=== PATIENT | female | born 1985 | race African-American/Black ===

== ENCOUNTER 2017-09-19 16:42 | Emergency (ER) | payer SELFPAY ==
[2017-09-19 16:59] VITALS: BP 125/85; PULSE 81; TEMP 98.3; BMI 41.2
--- NOTE | 2017-09-19 17:01 | PDOC ---
Rapid Medical Evaluation Time Seen by Provider: 09/19/17 16:56 Medical Evaluation: 09/19/17 16:56 Pt c/o: chest tightness, unable to take a deep breath, worsened during winter months and when outside, used albuterol without improvement, hx of freq bronchitis, denies left sided cp, wheezing, calf pain, smoking, PERC - Pt on brief exam: LCTA, VSS, Pt ordered for: none P to proceed to the ED:
[2017-09-19] MEDS ORDERED: predniSONE 20 MG TABLET (UD) PO ONE (18:21)
--- NOTE | 2017-09-19 18:22 | PDOC ---
History of Present Illness - General Chief Complaint: Shortness of Breath Stated Complaint: COLD SYMPTOMS Time Seen by Provider: 09/19/17 16:56 History Source: Patient Exam Limitations: No Limitations - History of Present Illness Initial Comments: CHIEF COMPLAINT: 32 y/o afebrile female with no significant PMH c/o SOB, cough and chest tightness "since the weather got cold". HISTORY OF PRESENT ILLNESS: The patient states that since the weather got cold she has had trouble taking air in. She also has a dry cough and chest tightness. She was seen at another hospital and by her PCP 1 month ago for the same symptoms, was worked up and sent with an rx for a special inhaler but her insurance wouldn't cover it and she couldn't afford it. She denies f/c, earache , sore throat, jaw pain, left arm pain, chest pressure, n/v/d, abd pain and all other symptoms. Past History - Past Medical History Allergies/Adverse Reactions: Allergies Allergy/AdvReac Type Severity Reaction Status Date / Time No Known Allergies Allergy Verified 09/19/17 16:59 Home Medications: Ambulatory Orders Albuterol 0.083% Nebulizer Serena [Ventolin 0.083% Nebulizer Soln -] 1 neb NEB Q4H #50 vial 09/19/17 Nebulizer and Compressor [[place] Choice Nebulizer] 1 each Q4H #1 each Prednisone [Deltasone] 60 mg PO DAILY #12 tablet 09/19/17 COPD: No (BRONCHITIS) Other medical history: DENIES MEDICAL HX - Suicide/Smoking/Psychosocial Hx Smoking History: Never smoked Hx Alcohol Use: No Drug/Substance Use Hx: No Review of Systems - Review of Systems Able to Perform ROS?: Yes Constitutional: No: Chills, Fever HEENTM: Yes: Nose Congestion. No: Ear Pain, Nose Pain, Throat Pain, Difficulty Swallowing Respiratory: Yes: Cough, Shortness of Breath (worse in the cold weather). No: Wheezing, Productive cough, Hemoptysis Cardiac (ROS): Yes: Chest Tightness (in the cold weather) ABD/GI: No: Diarrhea, Nausea, Vomiting *Physical Exam - Vital Signs Last Vital Signs Temp Pulse Resp BP Pulse Ox 98.3 F 81 16 125/85 95 09/19/17 16:55 09/19/17 16:55 09/19/17 16:55 09/19/17 16:55 09/19/17 16:55 - Physical Exam Comments: Well appearing female in NAD or obvious discomfort, speaking in full sentences. General Appearance: Yes: Nourished, Appropriately Dressed, Obese Respiratory/Chest: positive: Lungs Clear, Normal Breath Sounds. negative: Respiratory Distress, Rales, Rhonchi, Wheezing Cardiovascular: positive: Regular Rhythm, Regular Rate Medical Decision Making - Medical Decision Making A/P: 32 y/o with suspected cough variant asthma that is exacerbated by the cold weather. Plan is as follows: 1. Duoneb x 2 2. PO prednisone. The patient states she feels better after 2 duonebs and prednisone. Her O2 sat is now 98%. Will discharge to home with rx for nebulizer machine, albuterol and 4 day course of prednisone. Suggested she f/u with her PCP within 2 weeks and return to the ER with any worsening or concerning symptoms. The patient verbalizes understanding of all instructions, has no further questions and is awaiting discharge. *DC/Admit/Observation/Transfer Diagnosis at time of Disposition: Cough variant asthma - Discharge Dispostion Disposition: HOME Condition at time of disposition: Improved - Referrals - Patient Instructions Printed Discharge Instructions: DI for Asthma -- Adult Additional Instructions: Discharge Instructions: -Use nebulizer and albuterol every 4 hours if symptomatic -Take Prednisone as prescribed for 4 days -Follow up with your doctor within 2 weeks -Return to the ER with any worsening or concerning symptoms - Post Discharge Activity
[2017-09-19] MEDS ORDERED: ALBUTEROL SO4 2.5/IPRATROPIUM 0.5 INH SOL 3 ML VIAL.NEB. NEB ONE (18:23)
[2017-09-19] MEDS ORDERED: predniSONE 20 MG TABLET (UD) ONE (18:23)
[2017-09-19] MEDS: ALBUTEROL SO4 2.5/IPRATROPIUM 0.5 INH SOL 3 ML VIAL.NEB. NEB SCH ×2 (18:27→18:46)
== END 2017-09-19 19:23 | disposition home or self-care (01) ==
LOC: JERFT 16:42
PROC: 3E0F7GC Introduction of Other Therapeutic Substance into Respiratory Tract, Via Natural or Artificial Opening (ICD-10-PCS; principal; 2017-09-19)
DX: J45.998 Other asthma (principal); R05 Cough
CPT/HCPCS: 99281-25